=== PATIENT | female | born 1955 | race Caucasian/White ===

== ENCOUNTER → 2016-12-13 | Outpatient (CLI) | payer OTHER | LOC: FIMAGING 14:46 | PROVIDERS: ATTEND Family Medicine | DX: Z12.31 Encounter for screening mammogram for malignant neoplasm of breast (principal) | CPT/HCPCS: G0202 ==

== ENCOUNTER → 2017-12-18 | Outpatient (CLI) | payer OTHER | LOC: FIMAGING 10:02 | PROVIDERS: ATTEND Family Medicine | DX: Z12.31 Encounter for screening mammogram for malignant neoplasm of breast (principal) ==

== ENCOUNTER 2018-03-25 08:17 | Emergency (ER) | payer OTHER ==
[2018-03-25 08:26] VITALS: BP 114/86
--- NOTE | 2018-03-25 08:41 | EDPHY ---
H & P Time Seen by Provider: 03/25/18 08:41 HPI/ROS: CHIEF COMPLAINT: Lower abdominal pain HISTORY OF PRESENT ILLNESS: History of previous diverticulitis presents with symptoms that she feels are identical to her previous diverticulitis. Symptoms were worse yesterday and her better today but not gone. She has some loose stools and felt a little clammy this morning but no fever or chills and no vomiting. No red blood per rectum and no melena. No urinary symptoms, no dysuria or hematuria, no skin rash. REVIEW OF SYSTEMS: Eye: no change in vision ENT: no sore throat Cardiac: no chest pain or syncope Pulmonary: no cough or SOB Abdomen: HPI Musculoskeletal: no back pain Skin: no rash Neuro: no headache Constitutional: no fever : no urinary symptoms A comprehensive 10 point review of systems is otherwise negative aside from elements mentioned in the history of present illness. PAST MEDICAL HISTORY: Includes diverticulitis, thyroid disease, cholesterol Social history: Primary care is [facility] General Appearance: Alert and conversant, cooperative. Eyes: No scleral icterus. ENT, Mouth: Normal mucous membranes. Respiratory: Normal respiratory effort, breath sounds equal, lungs are clear to auscultation. Cardiovascular: Regular rate and rhythm. Rate around 80 on my exam. Gastrointestinal: Mild left lower quadrant tenderness without rebound or guarding. Normal bowel sounds, not distended. No peritoneal signs. Neurological: Alert, face symmetric, normal motor and sensory in extremities. Skin: Warm and dry, no rashes. Musculoskeletal: No peripheral edema. Psychiatric: Not agitated. Emergency Department course/MDM: Differential considered including but not limited to renal colic, pyelonephritis , bowel obstruction, diverticulitis, appendicitis. We discussed imaging versus empiric treatment. I offered CT scan if the patient would like more diagnostic certainty but she says she is comfortable with empiric treatment with Augmentin which I think is reasonable. I think it certainly sounds likely that she has early diverticulitis, patient agrees. Clinically unlikely to have perforation or abscess at this time. Smoking Status: Never smoked Constitutional: Initial Vital Signs Temperature (C) 36.9 C 03/25/18 08:25 Heart Rate 100 03/25/18 08:25 Respiratory Rate 16 03/25/18 08:25 Blood Pressure 114/86 H 03/25/18 08:25 O2 Sat (%) 93 03/25/18 08:25 O2 Delivery Mode Room Air Allergies/Adverse Reactions: Sulfa (Sulfonamide Antibiotics) Allergy (Verified 03/25/18 08:24) Home Medications: Medication Instructions Recorded Levothyroxine 10/05/13 Lipitor 10 mg (RX) 10/05/13 Amoxicillin/Clavulanate Pot 875 mg PO BID #20 tab 03/25/18 [Augmentin 875 mg tab] Liothyronine Sodium 03/25/18 Departure - Departure Disposition: Home, Routine, Self-Care Clinical Impression: Diverticulitis Condition: Good Instructions: Diverticulitis (ED) Additional Instructions: Please return if you get fever or chills, vomiting, or worsening abdominal pain. Referrals: MEHRDAD NAVA [Primary Care Provider] - As per Instructions Prescriptions: Amoxicillin/Clavulanate Pot [Augmentin 875 mg tab] 875 mg PO BID #20 tab
== END 2018-03-25 09:05 | disposition home or self-care (01) ==
DX: K57.92 Diverticulitis of intestine, part unspecified, without perforation or abscess without bleeding (principal); Z87.19 Personal history of other diseases of the digestive system